=== PATIENT | male | born 1965 | race Caucasian/White ===

== ENCOUNTER 2020-08-20 16:22 | Emergency (ER) | payer MEDICAID ==
[~2020-08-20] VITALS: Ht 185.4 cm; Wt 129.0 kg
[~2020-08-20 16:22] MED LIST: DIPH-423 PO; HYDR-4353 PO; HYDR28CR14 TOP; IBUP-24 PO; OMEP40CA21 PO; QUET-1 PO
[2020-08-20 17:38] LABS: BASOPHILS % (AUTO) 0.5 % (0-1); EOSINOPHILS # (AUTO) 0.3 X10'3 (0-0.9); EOSINOPHILS % (AUTO) 2.6 % (0-6); HEMATOCRIT 41.7 % (42.0-52.0); HEMOGLOBIN 14.3 g/dl (14.0-17.9); LYMPHOCYTES # (AUTO) 3.9 X10'3 (1.1-4.8); LYMPHOCYTES % (AUTO) 38.4 % (21-51); MEAN CORPUSCULAR HEMOGLOBIN 32.9 PG (27.0-31.0); MEAN CORPUSCULAR HGB CONC 34.3 g/dL (33.0-36.5); MEAN CORPUSCULAR VOLUME 95.9 FL (78-98); MONOCYTES # (AUTO) 0.7 X10'3 (0-0.9); NEUTROPHILS # (AUTO) 5.2 X10'3 (1.8-7.7); NEUTROPHILS % (AUTO) 51.5 % (42-75); PLATELET COUNT 239 X10'3 (140-440); RED BLOOD COUNT 4.34 X10'6 (4.70-6.10); RED CELL DISTRIBUTION WIDTH 13.6 % (11.5-14.5); WHITE BLOOD COUNT 10.2 X10'3 (4.5-11.0)
[2020-08-20 17:48] LABS: ALANINE AMINOTRANSFERASE 29 U/L (12-78); ALBUMIN 3.8 G/DL (3.4-5.0); ALKALINE PHOSPHATASE 79 IU/L (46-116); ANION GAP 8 (8-16); ASPARTATE AMINO TRANSFERASE 9 U/L (10-37); BILIRUBIN,TOTAL 0.5 MG/DL (0.1-1.0); BLOOD UREA NITROGEN 14 MG/DL (7-18); BUN/CREATININE RATIO 9.3 (5.4-32.0); CALCIUM 8.7 MG/DL (8.5-10.1); CHLORIDE 106 MMOL/L (99-107); CREATININE 1.51 MG/DL (0.60-1.10); GLUCOSE 120 MG/DL (70-104); POTASSIUM 3.9 MMOL/L (3.5-5.1); SODIUM 143 MMOL/L (135-145); TOTAL CARBON DIOXIDE 28.8 MMOL/L (24-32); TOTAL PROTEIN 7.5 G/DL (6.4-8.2); eGFR 48 ML/MIN
[2020-08-20 18:43] VITALS: BP 147/95
== END 2020-08-20 18:45 | disposition home or self-care (01) ==
LOC: ER 16:22
DX: R07.9 Chest pain, unspecified (principal); F17.210 Nicotine dependence, cigarettes, uncomplicated; K21.9 Gastro-esophageal reflux disease without esophagitis; G89.29 Other chronic pain; M54.9 Dorsalgia, unspecified; Z79.899 Other long term (current) drug therapy
CPT/HCPCS: 36415; 71045; 80053; 83880; 84484; 85025; 93005; 99285

== ENCOUNTER 2021-04-28 20:01 | Emergency (ER) | payer MEDICAID ==
[~2021-04-28] VITALS: Ht 185.4 cm; Wt 128.6 kg
[2021-04-28 20:38] LABS: BASOPHILS % (AUTO) 0.2 % (0-1); EOSINOPHILS # (AUTO) 0.1 X10'3 (0-0.9); EOSINOPHILS % (AUTO) 0.9 % (0-6); HEMATOCRIT 40.9 % (42.0-52.0); HEMOGLOBIN 14.1 g/dl (14.0-17.9); LYMPHOCYTES # (AUTO) 4.2 X10'3 (1.1-4.8); MEAN CORPUSCULAR HEMOGLOBIN 32.1 PG (27.0-31.0); MEAN CORPUSCULAR HGB CONC 34.4 g/dL (33.0-36.5); MEAN CORPUSCULAR VOLUME 93.3 FL (78-98); MEAN PLATELET VOLUME 8.6 FL (7.4-10.4); MONOCYTES # (AUTO) 1.1 X10'3 (0-0.9); MONOCYTES % (AUTO) 6.5 % (2-12); NEUTROPHILS # (AUTO) 11.4 X10'3 (1.8-7.7); NEUTROPHILS % (AUTO) 67.4 % (42-75); PLATELET COUNT 237 X10'3 (140-440); RED BLOOD COUNT 4.38 X10'6 (4.70-6.10); RED CELL DISTRIBUTION WIDTH 13.4 % (11.5-14.5); WHITE BLOOD COUNT 16.8 X10'3 (4.5-11.0)
[2021-04-28 20:52] LABS: ALANINE AMINOTRANSFERASE 43 U/L (12-78); ALBUMIN/GLOBULIN RATIO 1.1 (1.1-1.5); ALKALINE PHOSPHATASE 85 IU/L (46-116); ANION GAP 9 (8-16); ASPARTATE AMINO TRANSFERASE 18 U/L (10-37); BILIRUBIN,TOTAL 0.4 MG/DL (0.1-1.0); BLOOD UREA NITROGEN 23 MG/DL (7-18); BUN/CREATININE RATIO 17.4 (5.4-32.0); CHLORIDE 104 MMOL/L (99-107); CREATININE 1.32 MG/DL (0.60-1.10); GLUCOSE 96 MG/DL (70-104); POTASSIUM 3.8 MMOL/L (3.5-5.1); SODIUM 138 MMOL/L (135-145); TOTAL CARBON DIOXIDE 25.1 MMOL/L (24-32); TOTAL PROTEIN 7.8 G/DL (6.4-8.2); eGFR 56 ML/MIN
[2021-04-28 23:22] VITALS: BP 136/83
== END 2021-04-28 23:59 | disposition home or self-care (01) ==
LOC: ER 20:04
DX: R07.89 Other chest pain (principal); K21.9 Gastro-esophageal reflux disease without esophagitis; G89.29 Other chronic pain; Z72.89 Other problems related to lifestyle; Z60.2 Problems related to living alone; Z79.899 Other long term (current) drug therapy
CPT/HCPCS: 36415; 71045; 80053; 83880; 84484; 85025; 85651; 93005; 99285

== ENCOUNTER 2025-02-13 21:44 | Emergency (ER) | payer MEDICAID ==
[~2025-02-13] VITALS: Ht 185.4 cm; Wt 129.5 kg
[2025-02-13 21:59] VITALS: BP 152/84; PULSE 82; RESP 22; TEMP 98.9; O2SAT 95
--- NOTE | 2025-02-13 23:04 | RADIOLOGY REPORT ---
PROCEDURE: DI CHEST,TWO VIEWS 02/13/2025 10:12 PM INDICATION: cough, sob COMPARISON: CHEST,SINGLE VIEW on DOS: 04/28/21, CHEST,SINGLE VIEW on DOS: 08/20/20 TECHNIQUE: DI CHEST,TWO VIEWS FINDINGS/IMPRESSION: Prominence of the interstitial markings. Unchanged cardiomediastinal silhouette. No pleural effusion or pneumothorax. Unchanged osseous structures.
[2025-02-14] MEDS ORDERED: AMOX-101 PO (00:03)
[2025-02-14] MEDS ORDERED: ALBU8HFA INH (00:03)
--- NOTE | 2025-02-14 00:03 | Physician Documentation ---
History of Present Illness ~ Chief Complaint: Cough Stated Complaint: BRONCHITIS Time Seen by MD: 23:18 OK to notify your PCP?: Yes Primary Medical Doctor: Sanchez Source: patient Mode of Arrival: POV Exam Limitations: no limitations HPI Patient reports that he thinks he has bronchitis. He reports that they he gets symptoms of a productive cough, shortness of breath and chest congestion ever year. He usually has an inhaler that he uses to help but has since run out. He reports that his symptoms have been going on for the past 7-10 days and worsening. He denies having any fevers. He is requesting amoxicillin as this typically works best for him. Patient has a history of COPD. Denies any chest pain, nausea, vomiting or diarrhea. Medication Reconciliation Allergies: Coded Allergies: No Known Allergies (Unverified , 04/28/21) Scheduled Amoxicillin Trihydrate (Amoxicillin), 1 CAP PO Q8H Ibuprofen (Advil), 600 MG PO BID, (Reported) Omeprazole (Prilosec), 1 CAP PO DAILY, (Reported) Quetiapine Fumarate* (Seroquel*), 100 MG PO HS, (Reported) Scheduled PRN Diphenhydramine Hcl (Benadryl), 50 MG PO Q6H PRN ITCHING PRN for allergy Hydrocodone Bit/Acetaminophen ([place] 10-325 Tablet), 2 TAB PO DAILY PRN for pain, (Reported) Hydrocortisone (hydrocortisone 1% cream), 1 APPLIC TOP Q12H PRN for rash albuterol inhaler (Pro-Air Inhaler), 2 PUFFS INH Q4HPRN PRN for wheezing Past Medical History Past Medical History: GERD, Chronic Back Pain Past Surgical History: no surgical history Alcohol Use: Sober Drug Use: none Lives with: Alone Lives In: Home Review of Systems All Other Systems at this time: Reviewed and Negative Physical Exam Vital Signs: RN Vital Signs have been reviewed: Yes, Temperature: 98.9, Heart Rate: 82, Respiratory Rate: 22, BP: 152/84, Pulse Oximetry: 95, Weight: 129.540 Oxygen Flow Rate: 0 Pulse Oximetry Reflects: adequate oxygenation Physical Exam General: Alert, no apparent distress. HEENT: PERRL, EOMI, no injection, moist mucous membranes. Bilateral TM clear. Posterior pharynx erythema, no exudates, sinuses nontender bilaterally. Neck: Full range of motion. No cervical lymphadenopathy Respiratory: Diminished lung sounds, mild wheezes throughout, no crackles heard. Chest: No accessory muscle use. Cardiovascular: Regular rate and rhythm, no murmurs. Gastrointestinal: Soft, nontender, nondistended. Bowels sounds present. Extremities: Normal range of motion, no deformity. Neurologic: Oriented x4. Psychiatric: Normal mood and affect. Skin: Normal color, warm and dry. No edema, no ecchymosis. Progress Results/Orders Reviewed/noted all lab results: Yes Results/Orders Vital Signs 02/13/25 21:59 Temp 98.9 Pulse 82 Resp 22 B/P (MAP) 152/84 Pulse Ox 95 O2 Flow Rate 0 EKG/XRAY/CT/US/VASC/MRI Chest X-Ray : Additional Comments Chest x-ray: as interpreted by me; no large effusion, no large infiltrate, normal mediastinum. Medical Decision Making Additional information obtaine: old records Findings Patient presents with ongoing productive cough and chest congestion with shortness of breath for the past 7-10 days. He reports that he gets bronchitis every year and benefits from an inhaler and albuterol. He is requesting this again. Prescribed these 2 medications and sent to his pharmacy. He is afebrile and vital signs are stable. Physical exam was unremarkable except for some diminished breath sounds and diffuse wheezes, no crackles heard. Chest x-ray shows no obvious pneumonia or pleural effusion. There is some interstitial lung disease seen, but he reports that this has been normal for him due to his COPD. Differential Dx:Considerations: Include: Allergic rhinitis, Influenza, Pharyngitis-Viral, Pneumonia, Pnuemonitis Departure Disposition: HOME / SELF CARE / HOMELESS Impression: Primary Impression: Acute bronchitis Additional Impressions: Acute respiratory infection Cough Condition: Stable Discharge Instructions: Bronchitis Additional Instructions: Take all antibiotics as prescribed. Use your inhaler as needed. Follow up with your regular doctor within the next week if you have no improvement in symptoms. Return back here for any new or worsening symptoms. Referrals: NO PRIMARY CARE PROVIDER (PCP) Prescriptions albuterol inhaler (Pro-Air Inhaler) 8.5 Gm Inhaler 2 PUFFS INH Q4HPRN PRN for wheezing for 30 Days, #18 GM Prov: ELENA SHEIKH TABLEMAN 02/14/25 Amoxicillin Trihydrate (Amoxicillin) 500 Mg Capsule 1 CAP PO Q8H for 5 Days, #15 CAP Prov: ELENA SHEIKH 02/14/25 Education Educated: Patient Educated regarding: diagnosis, treatment, prognosis, need for follow up Additional Comment Medical Screen Exam This patient recieved a medical screening examination. After reviewing the individual's medical complaints with presenting symptoms and performing an appropriate physical examination, it was determined that no immediate life- threatening emergency medical condition is present. This individual is also not a women having contractions. Signature Scribe Signature: . Attestation: Scribed for Elena Sheikhp by Elena Cabrera NP . 02/14/25 01:17 Parts of this note were created using [employer] voice recognition software program. While efforts were made to correct any mistakes made by this voice recognition software program, nonsensical phrases may remain in this note. In addition, there may be errors and syntax, grammar, content and spelling. ELENA SHEIKH Feb 14, 2025 00:03
== END 2025-02-14 01:31 | disposition home or self-care (01) ==
LOC: ER 21:45
DX: J20.9 Acute bronchitis, unspecified (principal); R05.9 Cough, unspecified; G89.29 Other chronic pain; J44.9 Chronic obstructive pulmonary disease, unspecified; K21.9 Gastro-esophageal reflux disease without esophagitis; Z79.899 Other long term (current) drug therapy; Z60.2 Problems related to living alone
CPT/HCPCS: 71046; 99283